=== PATIENT | male | born 1995 | race Caucasian/White ===

== ENCOUNTER 2019-06-12 07:02 | Emergency (ER) | payer OTHER ==
[~2019-06-12] VITALS: Ht 182.9 cm; Wt 99.5 kg
[2019-06-12 07:03] VITALS: BP 148/78
[2019-06-12] MEDS ORDERED: vitamin (07:09)
[2019-06-12] MEDS ORDERED: IBUP-1114 PO (07:10)
[2019-06-12] MEDS ORDERED: ONDANSETRON 4 MG ORAL DISINTEGRATING TAB (Q0162 PER 1MG) PO ONE (07:30)
[2019-06-12] MEDS ORDERED: ONDA4TAB6 PO (08:02)
== END 2019-06-12 08:11 | disposition home or self-care (01) ==
LOC: M ED 07:02
DX: R11.2 Nausea with vomiting, unspecified (principal); A08.4 Viral intestinal infection, unspecified
CPT/HCPCS: 99282; Q0162